=== PATIENT | female | born 1990 | race Caucasian/White ===

== ENCOUNTER 2018-09-13 09:48 | Outpatient (CLI) | payer OTHER ==
[~2018-09-13] VITALS: Ht 167.6 cm; Wt 122.8 kg
[2018-09-13 10:19] VITALS: Ht 167.6 cm; Wt 122.8 kg
[2018-09-13 10:20] VITALS: BP 121/69; PULSE 106; RESP 18
[2018-09-13] MEDS ORDERED: PREN-99 PO (10:31)
[2018-09-13] MEDS ORDERED: FERR325T5 PO (10:32)
--- NOTE | 2018-09-13 13:40 | TRIAGE ---
OB Triage Datetime Report Generated by CPN: 09/13/2018 13:39 Datetime: 09/13/2018 13:18 Labor Evaluation Frequency: x1 Monitor Mode: External Duration (sec)2399: 60 Quality: Mild Resting Tone [place]: Relaxed Contraction Comments: pt denies feeling UCs Heart Rate FHR Baseline Rate: 145 Monitor Mode: External US FHR Baseline Changes: No Baseline Change Variability: Moderate 6-25 bpm Accelerations: 15X15 Decelerations: None Category: Category I Datetime: 09/13/2018 12:30 Labor Evaluation Frequency: none Monitor Mode: External Resting Tone [place]: Relaxed Heart Rate FHR Baseline Rate: 140 Monitor Mode: External US FHR Baseline Changes: No Baseline Change Variability: Moderate 6-25 bpm Accelerations: 15X15 Decelerations: None Category: Category I Datetime: 09/13/2018 11:31 Labor Evaluation Frequency: x2 Monitor Mode: External Duration (sec)2399: 50-60 Quality: Mild Resting Tone [place]: Relaxed Heart Rate FHR Baseline Rate: 150 Monitor Mode: External US FHR Baseline Changes: No Baseline Change Variability: Moderate 6-25 bpm Accelerations: 15X15 Decelerations: None Category: Category I Datetime: 09/13/2018 10:25 Stage of : OB Triage Assessment Type: Triage Maternal Assessment Level of Consciousness: Fully Conscious DTR's/Clonus: DTRs 2+; No Clonus Headache: Denies Blurred Vision: No Respiratory Effort: Unlabored; Regular Rhythm; Equal Expansion Breath Sounds, Left: Clear and Equal Breath Sounds, Right: Clear and Equal Nausea/Vomiting: Denies RUQ Epigastric Pain: Denies Lower Extremities Edema: None Degree: None Upper Extremities Edema: None Degree: None Facial Edema: None Temperature Route: Oral Fall Risk Assessment History of Falling: (0) No Secondary Diagnosis: (0) No Ambulatory Aid: (0) Bedrest/Nurse Assist IV Therapy: (0) No Gait: (0) Normal/Bedrest/Immobile Mental Status: (0) Oriented to Own Ability Fall Score: 0 Fall Risk Score Definition: No Risk: No action required Labor Evaluation Frequency: none Monitor Mode: External Heart Rate FHR Baseline Rate: 150 Monitor Mode: External US FHR Baseline Changes: No Baseline Change Variability: Moderate 6-25 bpm Accelerations: 15X15 Decelerations: None Category: Category I Pain Assessment Pain Scale: 5 Pain Presence: Intermittent Pain Type: Cramping Pain Location: Abdomen Datetime: 09/13/2018 10:22 Time of Arrival: 09/13/2018 09:42 EGA: 37.6 Arrived By: Ambulatory Arrived From: Home Chief Complaint: pt c/o abdominal cramping at home, none at this time, decreased movements Movement: Decreased Contractions: Denies/Absent Rupture of Membranes: Denies Vaginal Bleeding: None Vaginal Discharge: Denies Recent Sexual Intercouse: Denies Abdominal Trauma: Not Applicable Patient Complaints: Cramping Time Provider Notified: 09/13/2018 10:28 Provider Notified: Dr Looney Initial Plan: RAJENDRAT, FAHAD
--- NOTE | 2018-09-13 17:38 | PN ---
Triage Information Date/Time September 13, 2018 Reason for visit: DFM Weeks of Gestation 37 weeks and 6 days /Para 4 para 3 Diabetes: none Hypertention: none Additional information 28-year-old with IUP at 37 weeks and 6 days presented with complaint of decreased movement and cramping. She denies any leaking of fluid, vaginal bleeding. She has some contractions are currently resolved. Objective Vital Signs Date Temp Pulse Resp B/P (MAP) Pulse Ox O2 O2 Flow FiO2 Time Delivery Rate 09/13/18 99.2 106 18 121/69 Room Air 10:20 (86) Heart Rate: 130's Heart Rate Comments Category 1 Exam Appearance: Alert and oriented x4 the appears to be in acute distress Abdomen: Soft, gravid, fundal height consider gestational age NST: Category 1 HECTOR: 14.2 BPP: 12/06 SVE: Closed long and high Results/Medications Results 24 hrs Laboratory Tests Test 09/13/18 11:25 Urine Color YELLOW Urine Clarity CLOUDY A Urine pH 7.0 Urine Specific [place] 1.017 Urine Ketones NEGATIVE Urine Nitrite NEGATIVE Urine Bilirubin NEGATIVE Urine Urobilinogen NEGATIVE Urine Leukocyte Esterase NEGATIVE Urine Microscopic RBC 1 Urine Microscopic WBC 4 Urine Squamous Epithelial Cells MODERATE Urine Bacteria FEW A Urine Mucus FEW A Urine Hemoglobin NEGATIVE Urine Glucose NEGATIVE Urine Total Protein 2+ H Imaging Results PROCEDURE: US OB biophysical profile. CLINICAL INDICATION: decreased movements, TECHNIQUE: Multiple sonographic images of the pelvis were obtained. The images were reviewed on a PACS workstation. COMPARISON: No prior studies are available for comparison. FINDINGS: There is a single live intrauterine gestation. Cardiac activity is present with 144 beats per minute. There is a vertex presentation. The placenta is posterior. There is no evidence of placental abruption. HECTOR = 14.2 cm. Biophysical profile: movement 2/2 tone 2/2. breathing 2/2 HECTOR 2/2 Total 12/06 RPTAT: AA . IMPRESSION: Normal biophysical profile. Disposition: Discharge Assessment/Plan IUP at 37 weeks and 6 days Decreased movement testing reassuring No evidence of labor symptoms resolved after hydration Patient has been feeling movement well DC home Recommended patient to follow-up in 1 to 2 days after discharge from the hospital with primary OB office or sooner as needed Strict labor precautions kick count discussed with patient All questions answered to patient with satisfaction CARL GALLAGHER MD September 13, 2018 17:38
== END 2018-09-13 13:28 | disposition home or self-care (01) ==
LOC: OBT 09:48 → L-D 09:49 → OBT 13:28
PROVIDERS: ATTEND Obstetrics & Gynecology
DX: O36.8130 Decreased fetal movements, third trimester, not applicable or unspecified (principal); Z3A.37 37 weeks gestation of pregnancy
CPT/HCPCS: 76818; 81001; G0463

== ENCOUNTER 2018-09-27 05:09 | Inpatient (IN) | payer OTHER ==
[~2018-09-27] VITALS: Ht 167.6 cm; Wt 125.0 kg
[~2018-09-27 05:09] MED LIST: FERR325T5 PO; PREN-99 PO
[2018-09-27 05:14] VITALS: BMI 44.5
[2018-09-27 05:31] VITALS: BP 132/61; PULSE 81; RESP 17
[2018-09-27] MEDS ORDERED: CARBOPROST 250 MCG INJ IM PRN ×2 (07:00→16:30)
[2018-09-27] MEDS ORDERED: LIDOCAINE 1% (MPF) 30 ML INJ INJ PRN (07:00)
[2018-09-27] MEDS ORDERED: MISOPROSTOL 200 MCG TAB PR PRN ×2 (07:00→16:30)
[2018-09-27] MEDS ORDERED: OXYTOCIN 30 UNITS/LR 500 ML IV PRN ×2 (07:00→16:30)
[2018-09-27] MEDS ORDERED: METHYLERGONOVINE 0.2 MG INJ IM PRN (07:00)
[2018-09-27] MEDS ORDERED: BUTORPHANOL 2 MG INJ IV PRN (07:00)
[2018-09-27] MEDS ORDERED: OXYTOCIN 30 UNITS/LR 500 ML IV SCH ×4 (07:00→16:22)
[2018-09-27] MEDS ORDERED: BUTORPHANOL 2 MG INJ ONE (07:22)
[2018-09-27] MEDS: LACTATED RINGER'S 1,000 ML IV SCH ×2 (07:52→09:15)
[2018-09-27] MEDS ORDERED: MINERAL OIL LIGHT 10 ML VIAL TOP ONE (08:30)
--- NOTE | 2018-09-27 08:36 | PREAC ---
Date/Time of Note Date/Time of Note DATE: 09/27/18 TIME: 08:35 Anesthesia Eval and Record Evaluation Time Pre-Procedure Interview DATE: 09/27/18 TIME: 08:35 Age 28 Sex female NPO: 8 hrs Preoperative diagnosis Planned procedure labor epidural Past Medical History Past Medical History: Includes GI: Morbid obesity Surgery & Anesthesia Issues No known issue Meds Anticoagulation: No Beta Silver within 24 hr: No Reason Beta Silver not given: Pt. not on B-Silver Reported Medications Ferrous Sulfate (Ferrous Sulfate) 325 Mg Tablet.dr, 325 MG PO DAILY 09/13/18 Vit #76/Iron,Carb/FA (Pnv 29-1 Tablet) 1 Each Tablet, 1 EACH PO DAILY, TAB 09/13/18 Current Medications Lactated Ringer's 1,000 ml @ 125 mls/hr Q8H IV Last administered on 09/27/18at 07:52; Admin Dose 125 MLS/HR; Start 09/27/18 at 06:53 Butorphanol Tartrate (Stadol) 2 mg Q2H PRN IV .PAIN SCALE 6-10 Last a dministered on 09/27/18at 07:47; Admin Dose 2 MG; Start 09/27/18 at 07:00 Lidocaine (Xylocaine 1% (Mpf)) 30 ml ONCE PRN INJ .EPISIOTOMY; Start 09/27/18 at 07:00 Oxytocin/Lactated Ringer's 500 ml @ 500 mls/hr ONCE POST IV ; Start 09/27/18 at 07:00 Oxytocin/Lactated Ringer's 500 ml @ 125 mls/hr POST IV ; Start 09/27/18 at 07:00 Oxytocin/Lactated Ringer's 500 ml @ 0 mls/hr ONCE PRN IV .VAGINAL BLEEDING; Start 09/27/18 at 07:00 Methylergonovine Maleate (Methergine) 0.2 mg ONCE PRN IM .VAGINAL BLEEDING; Start 09/27/18 at 07:00 Carboprost Tromethamine (Hemabate) 250 mcg ONCE PRN IM .VAGINAL BLEEDING; Start 09/27/18 at 07:00 Misoprostol (Cytotec) 1,000 mcg ONCE PRN CA .VAGINAL BLEEDING; Start 09/27/18 at 07:00 Meds reviewed: Yes Allergies Coded Allergies: No Known Allergy (Unverified , 03/20/06) Allergies Reviewed: Yes Labs/Studies Labs Reviewed: Reviewed by anesthesiologist Result Diagram: 09/27/18 0730 Laboratory Tests 09/27/18 07:30 Blood Bank Test 09/27/18 07:30 Blood Type O POSITIVE Rh Immune Globulin Candidate NO test: Positive Pre-procedure Exam Last vitals Vital Signs Date Temp Pulse Resp B/P (MAP) Pulse Ox O2 O2 Flow FiO2 Time Delivery Rate 09/27/18 98.1 81 17 132/61 Room Air 05:31 (84) Airway: Adequate mouth opening, Adequate thyromental dist Mallampati: Mallampati II Teeth: Normal Lung: Normal Heart: Normal ASA Physical Status ASA physical status: 2 Emergency: None Planned Anesthetic Neuraxial: Epidural Pre-operative Attestations Prior to commencing anesthesia and surgery, the patient was re-evaluated, there was verification of: *The patient's identity *The results of appropriate recent lab work and preoperative vital signs *The above evaluation not changing prior to induction *Anesthetic plan, risk benefits, alternative and complications discussed with patient/family; questions answered; patient/family understands, accepts and wishes to proceed. EVELIA SANTOS September 27, 2018 08:36
[2018-09-27] MEDS ORDERED: KETOROLAC 30 MG INJ IV PRN (09:00)
[2018-09-27] MEDS ORDERED: DIPHENHYDRAMINE 50 MG INJ IV PRN (09:00)
[2018-09-27] MEDS ORDERED: NALOXONE (0.4 MG/ML) INJ IV PRN (09:00)
[2018-09-27] MEDS ORDERED: FENTAnyl 2MCG/ML-ROPIV 0.2% 100 ML BAG EPI SCH (09:00)
[2018-09-27] MEDS ORDERED: ONDANSETRON 4 MG INJ IV PRN ×2 (09:00→16:30)
[2018-09-27] MEDS ORDERED: HYDROmorphONE 0.5 MG/0.5 ML SYG IV PRN ×2 (09:00)
--- NOTE | 2018-09-27 09:43 | PAC ---
Date/Time of Note Date/Time of Note DATE: 09/27/18 TIME: 09:42 Post-Anesthesia Notes Post-Anesthesia Note Last documented vital signs Vital Signs Date Temp Pulse Resp B/P (MAP) Pulse Ox O2 O2 Flow FiO2 Time Delivery Rate 09/27/18 98.1 81 17 132/61 Room Air 05:31 (84) Activity: WNL Respiratory function: WNL Cardiovascular function: WNL Mental status: Baseline Pain reasonably controlled: Yes Hydration appropriate: Yes Nausea/Vomiting absent: Yes EVELIA SANTOS September 27, 2018 09:43
[2018-09-27 09:51] VITALS: Ht 167.6 cm; Wt 125.0 kg
--- NOTE | 2018-09-27 16:21 | HP ---
Date/Time of Note Date/Time of Note DATE: 09/27/18 TIME: 16:16 OB - History Hx of Present Free Text/Dictation September 27, 2018 Estimated Due Date: September 28, 2018 : 4 Para: 3 Care: Good Care Other Concerns: 28-year-old G4, P3 with IUP at 39 weeks and 6 days with care with Dr. casas [facility] [place] presented in labor and was noted to have cervical change. records available. Reviewed. GBS negative. Had a history of GDM and prior but not in current . She was 3 cm 80% -3 and she had painful contractions. Past Family/Social History * Past Medical, Surgical, Family and Obstetric Histories reviewed from chart. Blood Type: O+ Rubella: immune RPR/VDRL: Negative GBS Status: Negative HBsAG: Negative OB Admission Exam Vital Signs Vital Signs Vital Signs Date Temp Pulse Resp B/P (MAP) Pulse Ox O2 O2 Flow FiO2 Time Delivery Rate 09/27/18 98.1 81 17 132/61 Room Air 05:31 (84) Physical Exam HEENT: WNL Lungs: Clear Abdomen: WNL Extremities: Normal Cervical Dilatation: 3cm Effacement: 75% Station: -3 Membranes: Intact Heart Rate: 120's Accelerations: Accelerations Present Varibility: Moderate Intensity: Firm Last 72 hours Lab Results CBC & BMP 09/27/18 07:30 OB Assessment/Plan Reason for admission: active labor Other Assessment: IUP at 39 weeks and 6 days Active labor Painful contractions. Cervical change noted. Patient will be admitted for labor management. GBS negative. Admit the patient to labor and delivery Epidural if the patient requires for pain control Anticipate CARL PAGAN MD September 27, 2018 16:21
[2018-09-27] MEDS: LACTATED RINGER'S 1,000 ML IV* SCH (16:22)
[2018-09-27] MEDS ORDERED: HYDROCODONE/APAP (5/325) TAB PO PRN (16:30)
[2018-09-27] MEDS ORDERED: ACETAMINOPHEN 325 MG TAB PO PRN (16:30)
[2018-09-27] MEDS ORDERED: WITCH HAZEL/GLYCERIN PAD PR PRN (16:30)
[2018-09-27] MEDS ORDERED: ZOLPIDEM 5 MG TAB PO PRN (16:30)
[2018-09-27] MEDS ORDERED: morphine 2 MG INJ IV PRN (16:30)
[2018-09-27] MEDS ORDERED: DIPHENHYDRAMINE 25 MG CAP PO PRN (16:30)
[2018-09-27] MEDS ORDERED: NACL 0.9% 3 ML SYG IV SCH (16:30)
--- NOTE | 2018-09-27 16:35 | LDN ---
Date/Time of Note Date/Time of Note DATE: 09/27/18 TIME: 16:28 Delivery Summary 09/27/2018 Placenta Delivered: Spontaneously Meconium: none Episiotomy: No Indication for episiotomy N/A Perineal laceration: 2 Laceration repair: first degree perineal laceration and RT labial laceration repaired using 3-0 chromic Estimated blood loss: 100 Sponge & Needle done & correct: Yes All needle counts correct: Yes Any foreign bodies felt in the: No Delivery Information Sex Infant Sex: male Apgars 1 Minute: 8 5 Minute: 9 Suctioning Nose & mouth suctioned at jerry: Yes Delee suction performed: Yes Umbilical Cord Umbilical cord with: 3 Vessels Cord Blood was obtained: Yes CARL GALLAGHER MD September 27, 2018 16:35
[2018-09-27 16:50] VITALS: BP 117/58; PULSE 75; RESP 16
[2018-09-27 17:50] VITALS: BP 126/66; PULSE 84; RESP 18
[2018-09-27] MEDS: LANOLIN HPA 1 PKT TOP PRN (18:17)
[2018-09-27] MEDS: IBUPROFEN 600 MG TAB PO SCH ×2 (18:18→23:29)
[2018-09-27 20:15] VITALS: BP 125/64; PULSE 91; RESP 18
[2018-09-27] MEDS: SENNA/DOCUSATE NA (8.6MG/50MG) TAB PO SCH (22:17)
[2018-09-28] MEDS: LACTATED RINGER'S 1,000 ML IV* SCH (00:22)
[2018-09-28 03:39] VITALS: BP 101/58; PULSE 77; RESP 17
[2018-09-28] MEDS: IBUPROFEN 600 MG TAB PO SCH ×4 (05:45→23:56)
[2018-09-28 08:00] VITALS: BP 111/66; PULSE 74; RESP 18
[2018-09-28] MEDS: SENNA/DOCUSATE NA (8.6MG/50MG) TAB PO SCH ×2 (08:41→21:38)
[2018-09-28] MEDS ORDERED: BENZOCAINE 20% 56 ML SPRAY TOP PRN (14:00)
--- NOTE | 2018-09-28 16:50 | QN ---
Documentation Comment had B.M no c/o vss afebrile fundus firm lochia min A stable post #1 P as ordered ELSIE MUNOZ MD September 28, 2018 16:50
[2018-09-28 16:52] VITALS: BP 112/58; PULSE 75; RESP 18
[2018-09-28 20:50] VITALS: BP 120/63; PULSE 80; RESP 19
[2018-09-28] MEDS: LANOLIN HPA 1 PKT TOP PRN (22:11)
[2018-09-29 04:00] VITALS: BP 109/58; PULSE 74; RESP 18
[2018-09-29] MEDS: IBUPROFEN 600 MG TAB PO SCH ×2 (06:30→11:52)
[2018-09-29 08:00] VITALS: BP 104/54; PULSE 84; RESP 18
[2018-09-29] MEDS: SENNA/DOCUSATE NA (8.6MG/50MG) TAB PO SCH (08:32)
[2018-09-29] MEDS ORDERED: MEASLES,MUMPS,RUBELLA VACCINE INJ SC* ONE (09:00)
[2018-09-29] MEDS ORDERED: VARICELLA VACCINE LIVE/PF 1,350 UNIT/0.5 ML ML SC* ONE (09:00)
[2018-09-29] MEDS ORDERED: DIPHTH/TET/ACEL PERTUSS (ADULT) 0.5 ML VIAL IM* ONE (09:00)
--- NOTE | 2018-09-29 12:51 | DS ---
Date/Time of Note Date/Time of Note DATE: 09/29/18 TIME: 12:49 Obstetrical Discharge Record Final Diagnosis Final Diagnosis: Term delivered Other Final Diagnosis 28 years old -0-0-4 normal vaginal delivery at 39 weeks and 6 days. She is ambulating and tolerating regular diet. s/p she is voiding without difficulty, had bowel movement. Pain is controlled on current medication. She is afebrile, vital sign is stable. Baby is doing well and is at bedside. She discharged home in stable condition with follow-up in 2 1 6 weeks. Vaginal Delivery Obstetrical Delivery: Spontaneous Condition on Discharge Physical Assessment Last Vitals: Vital Signs Date Temp Pulse Resp B/P (MAP) Pulse Ox O2 O2 Flow FiO2 Time Delivery Rate 09/29/18 98.5 84 18 104/54 Room Air 08:00 (71) Voiding: Yes Bowel Movement: Yes Breast: Soft, non-tender Fundus: Firm Calf Tenderness: No Patient Condition: Stable CHARITY LUO Sep 29, 2018 12:51
--- NOTE | 2018-09-30 15:33 | DELSUM ---
Delivery Summary A-C Datetime Report Generated by CPN: 09/30/2018 15:33 DELIVERY PERSONNEL Escort Car Driver: Sharlene, Stephany MATERNAL INFORMATION Delivery Anesthesia: Epidural Medications in Delivery: pitocin Delivery QBL (ml): 100 Placenta Cultured: No Maternal Complications: None Other Maternal Complications: IN LABOR LABOR SUMMARY EDC: 09/28/2018 00:00 No. Babies in Womb: 1 Attempted: No Labor Anesthesia: Epidural LABOR INFORMATION Reason for Induction: Not Applicable Onset of Labor: 09/27/2018 04:00 Complete Dilatation: 09/27/2018 14:34 Oxytocin: Augmentation Group B Beta Strep: Negative Antibiotics # of Doses: 0 Steroids Given: None Reason Steroids Not Administered: Not Applicable MEMBRANES Membranes Rupture Method: Artificial Rupture of Membranes: 09/27/2018 10:57 Length of Rupture (hr): 3.90 Amniotic Fluid Color: Clear Amniotic Fluid Amount: Small Amniotic Fluid Odor: None STAGES OF LABOR Stage 1 hr: 10 Stage 1 min: 34 Stage 2 hr: 0 Stage 2 min: 17 Stage 3 hr: 0 Stage 3 min: 3 Total Time in Labor hr: 10 Total Time in Labor min: 54 VAGINAL DELIVERY Episiotomy: None Laceration Extension: First Degree Laceration Type: Perineal; Vaginal Laceration Repair: Yes Initial Vag Sponge Count: 10 Final Vag Sponge Count: 10 Initial Vag Sharps Count: 2 Final Vag Sharps Count: 2 Sponge Count Correct: Yes; Vaginal Sweep Performed Sharps Count Correct: Yes BABY A INFORMATION Infant Delivery Date/Time: 09/27/2018 14:51 Method of Delivery: Vaginal Born in Route : No : N/A Forceps: N/A Vacuum Extraction: N/A Shoulder Dystocia : N/A SHOULDER DYSTOCIA BABY A Delivery Date/Time: 09/27/2018 14:51 PRESENTATION/POSITION BABY A Presentation: Cephalic Cephalic Presentation: Vertex Vertex Position: Left Occipital Anterior Breech Presentation: N/A PLACENTA INFORMATION BABY A Placenta Delivery Time : 09/27/2018 14:54 Placenta Method of Delivery: Spontaneous Placenta Status: Delivered SCORES BABY A Heart Rate 1 min: >100 bpm Resp Effort 1 min: Good Cry Reflex Irritability 1 min: Cough/Sneeze/Pulls Away Muscle Tone 1 min: Active Motion Color 1 min: Blue/Pale Resuscitation Effort 1 min: Tactile Stimulation SCORE 1 MIN: 8 Heart Rate 5 min: >100 bpm Resp Effort 5 min: Good Cry Reflex Irritability 5 min: Cough/Sneeze/Pulls Away Muscle Tone 5 min: Active Motion Color 5 min: Body [place], Extremit Blue Resuscitation Effort 5 min: Tactile Stimulation SCORE 5 MIN: 9 INFANT INFORMATION BABY A Gestational Age at Delivery: 39.6 Gestational Status: Full Term- 39- 40.6 Weeks Infant Outcome : Liveborn Condition : Stable Infant Sex: Female IDENTIFICATION/MEDS BABY A ID Band Number: [id number] ID Band Location: Right Leg; Left Arm Sensor Applied: Yes Sensor Number: [id number] Sensor Location : Cord Clamp Vitamin K Given : Not Given Erythromycin Given: Not Given WEIGHT/LENGTH BABY A Infant Birthweight (gm): 3485 Weight (lb): 7 Infant Weight (oz): 11 Length (in): 19.25 Infant Length (cm): 48.90 CORD INFORMATION BABY A No. Cord Vessels: 3 Nuchal Cord : Around Neck x1, Loose Cord Blood Taken: Yes Suction: Mouth; Nose ASSESSMENT BABY A Infant Complications: None Physical Findings at Delivery: Within Normal Limits Infant Respirations: Appears Normal Content Management Consultant/ALS Called : No Infant Care By: CUONG Mancilla Transferred To: Remains with Mother
== END 2018-09-29 15:32 | disposition home or self-care (01) | DRG 807 ==
LOC: OBT 05:09 → L-D 05:10 → OBT 06:50 → L-D 06:59 → PP1 16:54
PROVIDERS: ADMIT Obstetrics & Gynecology; ATTEND Obstetrics & Gynecology
PROC: 10E0XZZ Delivery of Products of Conception, External Approach (ICD-10-PCS; principal; 2018-09-27)
PROC: 0HQ9XZZ Repair Perineum Skin, External Approach (ICD-10-PCS; 2018-09-27)
DX: O70.0 First degree perineal laceration during delivery (principal); Z37.0 Single live birth; O99.214 Obesity complicating childbirth; E66.01 Morbid (severe) obesity due to excess calories; Z3A.39 39 weeks gestation of pregnancy; Z23 Encounter for immunization
CPT/HCPCS: 62322; 85014; 85018; 85025; 85610; 85730; 86592; 86850; 86900; 86901; 87340; 90715; 90716; G0463; J0595; J2590; J3010; J7120